=== PATIENT | female | born 1985 | race Caucasian/White ===

== ENCOUNTER 2024-04-15 08:58 | Emergency (ER) | payer BC, SELFPAY ==
[2024-04-15 09:11] VITALS: BP 129/93; PULSE 67; RESP 16; TEMP 36.3; O2SAT 100
--- NOTE | 2024-04-15 09:12 | ED.SKABFB ---
HPI - Skin/Abscess/Foreign Bdy General Chief complaint: Skin/Abscess/Foreign Body Stated complaint: Rash Time Seen by Provider: 04/15/24 09:18 Source: patient Mode of arrival: ambulatory Limitations: no limitations History of Present Illness HPI narrative: 38 y/o female 2 weeks , presented for c/o itchy red rash to both underarms. Onset 4 days. Started taking left over prednisone for the past few days, thinks it is 20mg; also applied hydrocortisone cream without improvement. Takes claritin daily. Denies lip, tongue, or throat swelling, shortness of breath or wheezing. Denies changes to soap, detergent, lotion, or any other exposures. No one else in the house or any contacts with similar symptoms. States she had a similar rash about 3 months after the of her other child. Related Data Home Medications Medication Instructions Recorded Confirmed polyethylene glycol 3350 17 gram 17 g PO DAILY 04/15/24 04/15/24 oral powder packet (Miralax) Allergies Allergy/AdvReac Type Severity Reaction Status Date / Time Sulfa (Sulfonamide Allergy Rash Verified 04/15/24 09:20 Antibiotics) Review of Systems Review of Systems: CONSTITUTIONAL: Denies body aches, fever, chills, or sweats. EYES: Denies visual changes, redness, or discharge. ENT: Denies rhinorrhea, congestion CARDIOVASCULAR: Denies chest pain, palpitations, or edema. RESPIRATORY: Denies cough or dyspnea. GASTROINTESTINAL: Denies abdominal pain, nausea, vomiting, or diarrhea. SKIN: reports itchy rash MUSCULOSKELETAL: Denies back pain, joint pain, or myalgia. NEUROLOGIC: Denies headache, numbness, tingling, or weakness. PMFSH Comments At time of signature, I have reviewed and agree with nursing past medical, surgical, social and family history unless otherwise noted. Please see nursing chart for further information. There is no relevant family history pertinent to the presenting complaint Exam Narrative: GENERAL: Well-appearing, well-nourished, and in no acute distress. EYES: PERRLA, conjunctivae clear, and EOMI. ENT: Mucous membranes moist. Oropharynx without edema, erythema or lesions. CHEST: Clear to auscultation. No respiratory distress. HEART: Regular rate and rhythm. SKIN: Warm, dry. Scattered erythematous round lesions c/w urticaria noted to Bilateral axilla, extends to the left wrist.CMS intact. NEURO: Alert and oriented x3. PSYCH: Normal mood and affect Course Course Emergency Course: Patient is aware of diagnosis, understands and agrees to treatment plan. Anticipatory guidance given. Patient agrees to follow-up as directed and is aware of reasons to seek care at the emergency department. Portions of this record may have been created with voice recognition software Level of Care: Express Care Visit Vital Signs Vital signs: Vital Signs Temperature 97.4 F L 04/15/24 09:11 Pulse Rate 67 04/15/24 09:11 Respiratory Rate 16 04/15/24 09:11 Blood Pressure 129/93 H 04/15/24 09:11 Pulse Oximetry 100 04/15/24 09:11 Temperature 97.4 F L 04/15/24 09:11 Pulse Rate 67 04/15/24 09:11 Respiratory Rate 16 04/15/24 09:11 Blood Pressure 129/93 H 04/15/24 09:11 Pulse Oximetry 100 04/15/24 09:11 Reviewed MDM - Skin/Abscess/Foreign Bdy MDM Narrative Medical decision making narrative: Discussed physical exam findings. Reviewed Rx Advised supportive measures and signs/symptoms to go to the ER. Pt is appropriate for outpt treatment and f/u. Instructed patient to go to nearest ER immediately for any worsening symptoms including but not limited to: fever, spreading rash, pain, sore throat, headache, dizziness, chest pain, trouble breathing, or any symptoms concerning to the patient. Differential Diagnosis Differential diagnosis: Likely abscess of skin or subcutaneous tissue, urticaria, herpes zoster, cellulitis and contact dermatitis Discharge Plan Discharge Clinical Impression: Urticaria
== END 2024-04-15 09:35 | disposition home or self-care (01) ==
PROVIDERS: Emergency Provider Nurse Practitioner Family
DX: L50.9 Urticaria, unspecified (principal)
CPT/HCPCS: 99203; G0463

== ENCOUNTER 2024-12-22 08:53 | Emergency (ER) | payer BC, SELFPAY ==
[2024-12-22 09:23] VITALS: BP 160/89; PULSE 67; RESP 16; TEMP 36.2; O2SAT 100
--- NOTE | 2024-12-22 10:45 | ED.GENADULT ---
HPI - General Adult General Chief complaint: Back Pain/Injury Stated complaint: Back Pain Time Seen by Provider: 12/22/24 10:45 Source: patient Mode of arrival: ambulatory Limitations: no limitations History of Present Illness HPI narrative: 39-year-old female patient presents to [facility] with complaints of left-sided back pain for the past 5 days. Patient states Tuesday morning she woke up and had back pain around the scapular area. Patient states as the week has progressed it has gotten significantly worse. 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 Patient states she has been trying to do heat, Advil, ibuprofen, Tylenol and Biofreeze. Patient denies any fevers body aches or chills. Denies any recent cough or trouble breathing. Patient denies any recent injury that she is aware of. Denies any abdominal pain or urinary symptoms. Related Data Allergies Allergy/AdvReac Type Severity Reaction Status Date / Time Sulfa (Sulfonamide Allergy Rash Verified 12/22/24 10:12 Antibiotics) Review of Systems Review of Systems: CONSTITUTIONAL: Denies fever, chills, or sweats. EYES: Denies visual changes, redness, or discharge. ENT: Denies rhinorrhea, congestion, sore throat, or otalgia. CARDIOVASCULAR: Denies chest pain, palpitations, or edema. RESPIRATORY: Denies cough or dyspnea. GASTROINTESTINAL: Denies abdominal pain, nausea, vomiting, or diarrhea. GENITOURINARY: Denies dysuria or hematuria. SKIN: Denies rash or itching. MUSCULOSKELETAL: Positive left upper back pain, denies joint pain, or myalgia. NEUROLOGIC: Denies headache, numbness, or weakness. PSYCHIATRIC: Denies anxiety or depression. [facility] Past Medical History Medical History (Updated 12/22/24 @ 11:01 by MITRA Huber) No significant past medical history Comments At the time of my signature I agree with nursing past medical history, surgical, social, and family history. There is no relevant family history pertinent to the presenting complaint. Exam Narrative: GENERAL: Well-appearing, well-nourished, and in no acute distress. HEAD: Normocephalic, atraumatic. EYES: PERRLA and EOMI. ENT: Nares clear, no rhinorrhea or epistaxis. Mucous membranes moist. NECK: Supple. No lymphadenopathy CHEST: Clear to auscultation. No respiratory distress. HEART: Regular rate and rhythm. No murmur heard. Normal peripheral pulses. ABDOMEN: Soft, nontender, nondistended, normal active bowel sounds. EXTREMITIES: Normal range of motion. No edema. BACK: Patient is able to ambulated without assistance. Pt is seated on the stretcher in no obvious distress. No surface trauma noted. muscle tenderness to Palpation Noted under the left scapula. spasm is noted to the left scapula area. No step-offs or deformity noted to the cervical, thoracic or lumbar spine to firm Palpation at the midline. No CVA tenderness to percussion. No saddle anesthesia. ROM: able to stand erect. Normal flexion, extension, Lateral bending and rotation without limitation or complaint of pain. SKIN: Warm, dry, no rash. NEURO: No focal deficits. Alert and oriented x3. Course Course Level of Care: Express Care Visit Vital Signs Vital signs: Vital Signs Temperature 36.2 C L 12/22/24 09:23 Pulse Rate 67 12/22/24 09:23 Respiratory Rate 16 12/22/24 09:23 Blood Pressure 160/89 H 12/22/24 09:23 Pulse Oximetry 100 12/22/24 09:23 Temperature 36.2 C L 12/22/24 09:23 Pulse Rate 67 12/22/24 09:23 Respiratory Rate 16 12/22/24 09:23 Blood Pressure 160/89 H 12/22/24 09:23 Pulse Oximetry 100 12/22/24 09:23 Vital signs reviewed. The patient has been informed that they may have pre-hypertension or Hypertension based on a BP reading in the department. I recommend that the patient call the primary care provider listed on their discharge instructions or a physician of their choice this week to arrange follow up for further evaluation of possible pre-hypertension or Hypertension Medical Decision Making MDM Narrative Medical decision making narrative: discussed with patient we will discharge her home with some muscle relaxants this is most likely a pulled muscle that has now spasmed. Discussed with patient she can continue taking Tylenol and ibuprofen with the muscle relaxants. Discussed with patient that the muscle relaxants can make her sleepy. Discussed with patient to also do ice instead of heat for right now as well as some gentle stretching exercises and gentle massage to the area to try and get the muscle to relax. Patient is aware the plan of care denies any other questions or concerns at this time. Differential Diagnosis Differential Diagnosis: Differential diagnosis: Acute musculoskeletal injury or exacerbation, neurological emergency, acute coronary syndrome, kidney stones, epidural abscess or hematoma,Cauda Equina Syndrome, herniation. Vital Signs Vital Signs: Vital Signs Temperature 36.2 C L 12/22/24 09:23 Pulse Rate 67 12/22/24 09:23 Respiratory Rate 16 12/22/24 09:23 Blood Pressure 160/89 H 12/22/24 09:23 Pulse Oximetry 100 12/22/24 09:23 Temperature 36.2 C L 12/22/24 09:23 Pulse Rate 67 12/22/24 09:23 Respiratory Rate 16 12/22/24 09:23 Blood Pressure 160/89 H 12/22/24 09:23 Pulse Oximetry 100 12/22/24 09:23 Critical Care Time Critical Care Time Critical Care Time: No Discharge Plan Discharge Clinical Impression: Muscle spasm of back Patient Disposition: Home Condition: Stable Instructions: Antibiotic Form, Back Pain (ED) Additional Instructions: Ice to the area for 20-30 minutes Gentle stretching exercises Gentle massage Caution with lifting, bending, stooping, twisting Avoid pushing, pulling take muscle relaxants as directed--caution drowsiness and no driving or alcohol Anti-inflammatory medicine as directed--take with food He may take the muscle relaxant and anti-inflammatory at the same time Pain medicine as directed for severe pain--caution drowsiness-no driving or alcohol. If this medicine is a narcotic, you can become constipated. He may want to start a laxative right away. Follow-up with your PCP if not improving in 5-7 days Patient Language: [place] Prescriptions: New cyclobenzaprine 10 mg tablet 10 mg PO TID PRN (Reason: muscle spasm) 7 Days Qty: 21 0RF Follow-up/Referrals: PHYSICIAN,ASSISTANT HOUSEKEEPING MANAGER [Primary Care Provider] - Time of Disposition: 10:59
== END 2024-12-22 11:03 | disposition home or self-care (01) ==
PROVIDERS: Emergency Provider Nurse Practitioner Family
DX: M62.830 Muscle spasm of back (principal)
CPT/HCPCS: 99213; G0463